=== PATIENT | male | born 1980 | race Caucasian/White ===

== ENCOUNTER 2023-02-28 15:11 | Inpatient (IN) | payer MEDICAID ==
[~2023-02-28] VITALS: Ht 175.3 cm; Wt 104.3 kg
[2023-02-28 15:28] VITALS: BP 109/58; PULSE 102; RESP 22; TEMP 100.4; O2SAT 98
[2023-02-28] MEDS ORDERED: MORPHINE SULFATE 4 MG/ML SYR IVP ONE (15:45)
[2023-02-28] MEDS ORDERED: ONDANSETRON 4 MG TAB PO ONE (15:45)
[2023-02-28] MEDS ORDERED: NACL 0.9% 1,000 ML IV ONE (15:45)
--- NOTE | 2023-02-28 15:50 | NUR ---
42 Y/O MALE BIB SELF, PATIENT PRESENTS TO ED WITH ABD PAIN ON RLQ FOR 2 MO WORSENING TODAY. PT STATES HE HAS BEEN HAVING HARD AND LOOSE STOOLS FOR 2 MO. LAST BM WAS NORMAL TODAY. STATES HE HAS BEEN HAVING ABD PAIN WITH URINATION. DENIES N/V/D; SKIN IS PINK/WARM/DRY; AAOX4 WITH EVEN AND STEADY GAIT; LUNGS CLEAR BL; HR EVEN AND REGULAR; PT DENIES ANY FEVER, CP, SOB, OR COUGH AT THIS TIME; PATIENT STATES PAIN OF 8/10 AT THIS TIME; PATIENT POSITIONED FOR COMFORT; HOB ELEVATED; BEDRAILS UP X2; BED DOWN. ER MD MADE AWARE OF PT STATUS. PMH: APPENDECTOMY ALLERGY: P[place]APPLE
[2023-02-28 15:57] LABS: BASOPHILS # (AUTO) 0.1 K/uL (0.00-0.22); BASOPHILS % (AUTO) 0.7 % (0.0-2.0); EOSINOPHILS % (AUTO) 0.3 % (0.0-4.0); HEMATOCRIT 36.4 % (36-52); HEMOGLOBIN 12.7 g/dL (12.0-18.0); LYMPHOCYTES # (AUTO) 1.5 K/uL (2.0-11.5); LYMPHOCYTES % (AUTO) 12.6 % (20.5-51.1); MEAN CORPUSCULAR HEMOGLOBIN 30 pg (27-31); MEAN CORPUSCULAR HGB CONC 35 g/dL (33-37); MEAN CORPUSCULAR VOLUME 86.9 fL (80-94); MONOCYTES # (AUTO) 0.7 K/uL (0.8-1.0); MONOCYTES % (AUTO) 5.7 % (1.7-9.3); NEUTROPHILS # (AUTO) 9.9 K/uL (1.8-7.7); NEUTROPHILS % (AUTO) 80.7 % (42.2-75.2); PLATELET COUNT (AUTO) 290 K/uL (140-450); RED BLOOD CELL COUNT(AUTO) 4.19 MIL/uL (4.20-6.10); RED CELL DISTRIBUTION WIDTH 12.7 % (11.6-13.7); WHITE BLOOD COUNT (AUTO) 12.3 K/uL (4.8-10.8)
[2023-02-28 16:11] LABS: ALBUMIN 3.3 g/dL (3.4-5.0); CARBON DIOXIDE 22.2 mmol/L (21-32); CREATININE 0.9 mg/dL (0.6-1.3); POTASSIUM 3.2 mmol/L (3.5-5.1); TOTAL BILIRUBIN 1.3 mg/dL (0.0-1.0)
--- NOTE | 2023-02-28 16:31 | NUR ---
PT TAKEN TO CT VIA WHEELCHAIR
[2023-02-28 17:17] LABS: APPEARANCE,URINE CLEAR (CLEAR); BILIRUBIN,URINE NEGATIVE (NEGATIVE); BLOOD, URINE NEGATIVE (NEGATIVE); COLOR,URINE YELLOW (YELLOW); LEUKOCYTE ESTERASE ,URINE NEGATIVE (NEGATIVE); NITRITE, URINE NEGATIVE (NEGATIVE); PH,URINE 8.5 (5.0-9.0); UGLUCOSE NEGATIVE (NEGATIVE)
[2023-02-28] MEDS ORDERED: PIPERACILLIN/TAZOBACTAM 3.375 GM in DEXTROSE 5% 50 ML IV ONE (17:50)
[2023-02-28] MEDS ORDERED: MORPHINE SULFATE 10 MG/ML VIAL IVP ONE (17:50)
[2023-02-28] MEDS ORDERED: cefTRIAXone 1,000 MG VIAL ONE (17:56)
[2023-02-28] MEDS ORDERED: PIPERACILLIN/TAZOBACTAM 3.375 GM VIAL IV ONE (17:56)
--- NOTE | 2023-02-28 17:57 | NUR ---
X-Ray at bedside.
[2023-02-28] MEDS ORDERED: ACETAMINOPHEN 650 MG/20.3 ML UDC PO PRN (18:25)
[2023-02-28] MEDS ORDERED: HYDROcodone/APAP 5/325 MG 1 TAB TAB PO PRN (18:25)
[2023-02-28] MEDS ORDERED: PIPERACILLIN/TAZOBACTAM 4.5 GM in DEXTROSE 5% 100 ML IV ONE (18:40)
[2023-02-28 19:15] LABS: PROTHROMBIN TIME 11.6 secs (10.8-13.4)
--- NOTE | 2023-02-28 19:28 | NUR ---
Pt report given to JACQUE IRWIN. Transfer of care at this time.
--- NOTE | 2023-02-28 19:32 | NUR ---
REPORT TAKEN FROM STACY MARTINO. CONTINUING PLAN OF CARE.
--- NOTE | 2023-02-28 19:35 | NUR ---
PT ON BEDSIDE MONITOR. PT STATES PAIN LEVEL 2/10. VSS. SIDE RAILS UP X1. HOB ELEVATED. BED AT LOWEST LEVEL. CALL LIGHT AT PT BEDSIDE. PENDING BED ASSIGNMENT. WILL TRANSPORT PT TO FLOOR AFTER CHANGE OF SHIFT.
--- NOTE | 2023-02-28 19:41 | NUR ---
MED RECON AND BELONGINGS LIST COMPLETED.
--- NOTE | 2023-02-28 19:52 | NUR ---
REPORT GIVEN TO LISA MARTINO.
--- NOTE | 2023-02-28 19:54 | NUR ---
Patient will be admitted to care of DR GALVEZ . Admited to TELE. Will go to [id number]. Belongings list completed. Report to RACHEL MARTINO.
[2023-02-28 20:00] VITALS: BP 113/61; PULSE 58; PULSE 75; PULSE 78; RESP 18; RESP 19; TEMP 99.7; O2SAT 95; O2SAT 97
--- NOTE | 2023-02-28 20:00 | NUR ---
RECEIVED PT FROM ER. REPORT RECEIVED FROM ER NURSE RADHAMES. PT IS AAOX4. PT CAME IN WITH COMPLAINS OF ABD PAIN. PT UNABLE TO DESCRIBE THE PAIN. FEELS WORSE WHEN MOVING AND BETTER WHEN NOT MOVING. PAIN IS RLQ. PT HAS IV ON LEFT AC 2O GAUGE WITH NS 125 CC/HR. EDUCATED PT WAIVER ANALYST LIGHT SYSTEM AND ROOM ENVIRONMENT. POC DISCUSSED. WILL CONTINUE TO MONITOR THE PT.
[2023-02-28] MEDS ORDERED: PANTOPRAZOLE 40 MG INJ VIAL IVP SCH (21:00)
[2023-02-28] MEDS: MORPHINE SULFATE 2 MG/ML SYR IVP PRN (21:21)
[2023-02-28] MEDS: NACL 0.9% 1,000 ML IV SCH (21:22)
--- NOTE | 2023-02-28 22:30 | NUR ---
PT POTASSIUM IS 3.2. WAS NOT COVERED IN ER. MESSAGED ASSISTANT FINANCIAL ACCOUNTANT DOCTOR CRISTÓBAL. WAITING FOR RESPONSE.
[2023-03-01] VITALS: BP 107/61; PULSE 58; PULSE 78; RESP 18; TEMP 96.1; O2SAT 95
--- NOTE | 2023-03-01 02:15 | NUR ---
OBSERVED PT. PT IS RESTING IN BED. NOT IN ANY DISTRESS. BREATHING EVEN AND UNLABORED. CALL LIGHT WITHIN REACH. SAFETY MEASURES TAKEN. WILL CONTINUE TO MONITOR THE PT.
[2023-03-01] MEDS: NACL 0.9% 1,000 ML IV SCH ×4 (02:25→20:31)
[2023-03-01 04:00] VITALS: BP 117/65; PULSE 53; PULSE 56; RESP 18; TEMP 97.5; O2SAT 97
--- NOTE | 2023-03-01 04:00 | NUR ---
VITAL SIGNS TAKEN AND STABLE. PT DENIES ANY PAIN. NO COMPLAINS. WILL CONTINUE TO MONITOR THE PT.
[2023-03-01 07:03] LABS: BASOPHILS # (AUTO) 0.1 K/uL (0.00-0.22); BASOPHILS % (AUTO) 0.6 % (0.0-2.0); EOSINOPHILS # (AUTO) 0.2 K/uL (0-0.4); EOSINOPHILS % (AUTO) 2.4 % (0.0-4.0); HEMATOCRIT 34.8 % (36-52); HEMOGLOBIN 11.9 g/dL (12.0-18.0); LYMPHOCYTES # (AUTO) 2.1 K/uL (2.0-11.5); LYMPHOCYTES % (AUTO) 22.9 % (20.5-51.1); MEAN CORPUSCULAR HEMOGLOBIN 30 pg (27-31); MEAN CORPUSCULAR HGB CONC 34 g/dL (33-37); MEAN CORPUSCULAR VOLUME 88.8 fL (80-94); MONOCYTES # (AUTO) 0.7 K/uL (0.8-1.0); MONOCYTES % (AUTO) 7.7 % (1.7-9.3); NEUTROPHILS % (AUTO) 66.4 % (42.2-75.2); PLATELET COUNT (AUTO) 259 K/uL (140-450); RED BLOOD CELL COUNT(AUTO) 3.92 MIL/uL (4.20-6.10); RED CELL DISTRIBUTION WIDTH 13.1 % (11.6-13.7)
--- NOTE | 2023-03-01 07:31 | NUR ---
ENDORSED PT TO DAY SHIFT RN FOR CONTINUITY OF CARE. PT IS STABLE.
--- NOTE | 2023-03-01 07:32 | NUR ---
PATIENT RECEIVED FROM PM NURSE FOR CONTINUATION OF CARE. PATIENT SEEN ON BED AWAKE. PATIENT RESTING HEART RATE BELOW 60. PATIENT WAS ASKED IF IT WAS A NORMAL OCCURANCE. PATIENT CONFIRMED HE HAS A SLOW HEART RATE WHEN HE'S NOT MOVING
[2023-03-01 08:00] VITALS: BP 101/62; PULSE 63; PULSE 72; PULSE 78; RESP 18; RESP 20; TEMP 96.9; O2SAT 97
--- NOTE | 2023-03-01 08:48 | NUR ---
PATIENT HAS BEEN SCREENED AND CATEGORIZED HIGH NUTRITION RISK. PATIENT WILL BE SEEN WITHIN 1-2 DAYS OF ADMISSION. 03/01/23-03/02/23 [facility] CONSULT FOR PATIENT FOR VOMITING X3 DAYS RECEIVED ON 03/01/23 AND WILL BE SEEN WITHIN 1-2 DAYS OF CONSULT. ZACH[address]
[2023-03-01] MEDS ORDERED: HYDROcodone/APAP 7.5/325 MG 1 TAB PO PRN (11:10)
[2023-03-01] MEDS ORDERED: ACETAMINOPHEN 325 MG TAB PO PRN (11:10)
[2023-03-01] MEDS ORDERED: ONDANSETRON 4 MG/2 ML VIAL IVP PRN (11:10)
[2023-03-01 12:00] VITALS: BP 130/63; PULSE 59; PULSE 60; RESP 19; TEMP 97; O2SAT 99
[2023-03-01 12:18] LABS: AMYLASE 21 U/L (25-115); CHOL/HDL RATIO 2.5 (1-4.5); FREE T4 (FREE THYROXINE) 1.26 ng/dL (0.76-1.46); HDL CHOLESTEROL 41 mg/dL (40-60); LDL (CALC) 49 mg/dL (60-100); LIPASE 35 U/L (73-393); THYROID STIMULATING HORMONE 1.57 uIU/mL (0.34-3.74); TRIGLYCERIDES 65 mg/dL (30-150)
[2023-03-01] MEDS: PIPERACILLIN/TAZOBACTAM 3.375 GM in DEXTROSE 5% 50 ML IV SCH ×2 (13:00→20:31)
--- NOTE | 2023-03-01 13:25 | NUR ---
PATIENT PICKED UP BY RADIOLOGY TECHS FOR SURGICAL PROCEDURE.
[2023-03-01] MEDS ORDERED: LIDOCAINE 1% 500 MG/50 ML VIAL ONE (13:28)
[2023-03-01] MEDS ORDERED: MIDAZOLAM 5 MG/5 ML VIAL ONE (13:28)
[2023-03-01] MEDS ORDERED: fentaNYL citrate 0.05 MG/ML VIAL ONE (13:28)
--- NOTE | 2023-03-01 14:37 | NUR ---
03/01/23 RD INITIAL ASSESSMENT COMPLETED PLEASE REFER TO NUTRITION ASSESSMENT UNDER CARE ACTIVITY FOR ESTIMATED NUTRITIONAL NEEDS. 1. CONTINUE NPO DIET TOLERATED. ONCE MEDICALLY APPROPRIATE ADVANCE TO CLEAR LIQUID DIET TOLERATED. 2. RD WILL MONITOR WEIGHT, NUTRITION RELATED LABS, PO INTAKE, AND GI ISSUES. 3. RD TO FOLLOW-UP 3-5 DAYS, MODERATE RISK ZACHARY PEOPLES RD
[2023-03-01 16:00] VITALS: BP 120/80; PULSE 59; PULSE 69; RESP 18; TEMP 98; O2SAT 97
[2023-03-01] MEDS: MORPHINE SULFATE 2 MG/ML SYR IVP PRN (16:32)
--- NOTE | 2023-03-01 19:30 | NUR ---
RECEIVED REPORT FROM DAY SHIFT RN FOR CONTINUITY OF CARE. PT IS AWAKE AND ALERT. RESTING IN BED. NOT IN ANY DISTRESS. PT DENIES ANY PAIN AT THIS TIME. PT HAS ACCORDION DRAIN MID ABD. MINIMAL DRAINAGE. PT HAS LEFT AC 20 GAUGE RUNNING NS 50 CC/HR. POC DISCUSSED. CALL LIGHT WITHIN REACH. WILL CONTINUE TO MONITOR THE PT.
[2023-03-01 20:00] VITALS: BP 103/61; PULSE 61; PULSE 64; RESP 20; TEMP 97.8; O2SAT 98
[2023-03-01] MEDS: DOCUSATE SODIUM 100 MG GELCAP PO SCH (20:31)
--- NOTE | 2023-03-01 23:40 | NUR ---
URINE CULTURE AND CULTURE OF ABD CATHETER DRAINAGE SENT TO LAB.
[2023-03-02] VITALS: BP 112/70; PULSE 53; PULSE 54; RESP 16; TEMP 97.1; O2SAT 96
[2023-03-02 01:12] LABS: BARBITURATE, URINE NEGATIVE ng/ml (NEG <=200); BENZODIAZEPINE, URINE NEGATIVE ng/mL (NEG <=200); CANNABINOID, URINE NEGATIVE ng/mL (NEG <=50); COCAINE, URINE NEGATIVE ng/mL (NEG <=300); OPIATE, URINE POSITIVE ng/mL (NEG <=2000); PHENCYCLIDINE SCREEN,URINE NEGATIVE ng/mL (NEG <=25)
--- NOTE | 2023-03-02 02:30 | NUR ---
OBSERVED PT. PT IS SLEEPING COMFORTABLY IN BED. NOT IN ANY DISTRESS. BREATHING EVEN AND UNLABORED. WILL CONTINUE TO MONITOR THE PT.
[2023-03-02 04:00] VITALS: BP 110/68; PULSE 53; PULSE 69; RESP 18; TEMP 97; O2SAT 95
[2023-03-02] MEDS: PIPERACILLIN/TAZOBACTAM 3.375 GM in DEXTROSE 5% 50 ML IV SCH ×3 (04:59→20:13)
[2023-03-02 05:33] LABS: BASOPHILS % (AUTO) 0.4 % (0.0-2.0); EOSINOPHILS # (AUTO) 0.2 K/uL (0-0.4); EOSINOPHILS % (AUTO) 2.3 % (0.0-4.0); HEMATOCRIT 34.4 % (36-52); LYMPHOCYTES # (AUTO) 1.6 K/uL (2.0-11.5); LYMPHOCYTES % (AUTO) 18.8 % (20.5-51.1); MEAN CORPUSCULAR HEMOGLOBIN 31 pg (27-31); MEAN CORPUSCULAR HGB CONC 35 g/dL (33-37); MEAN CORPUSCULAR VOLUME 87.7 fL (80-94); MONOCYTES # (AUTO) 0.5 K/uL (0.8-1.0); NEUTROPHILS # (AUTO) 6.2 K/uL (1.8-7.7); NEUTROPHILS % (AUTO) 72.5 % (42.2-75.2); PLATELET COUNT (AUTO) 251 K/uL (140-450); RED BLOOD CELL COUNT(AUTO) 3.92 MIL/uL (4.20-6.10); RED CELL DISTRIBUTION WIDTH 12.8 % (11.6-13.7); WHITE BLOOD COUNT (AUTO) 8.5 K/uL (4.8-10.8)
[2023-03-02 06:17] LABS: MAGNESIUM 1.8 mg/dL (1.8-2.4); PHOSPHORUS 3.7 mg/dL (2.5-4.9)
[2023-03-02 06:32] LABS: ANION GAP 10.9 (8-16); CARBON DIOXIDE 24.8 mmol/L (21-32); POTASSIUM 3.7 mmol/L (3.5-5.1)
[2023-03-02 06:53] LABS: CREATININE 0.7 mg/dL (0.6-1.3)
--- NOTE | 2023-03-02 07:15 | NUR ---
RECEIVED REPORT FROM BILLBOARD ERECTOR HELPER FOR CONTINUITY OF CARE. ALERT AND ORIENTED X 4. RESP. EVEN AND UNLABORED. ON ROOM AIR. IVF INFUSING WELL. NO C/O PAIN OR DISCOMFORT. CALL LIGHT KEPT WITHIN REACH. WILL CONTINUE TO MONITOR.
--- NOTE | 2023-03-02 07:18 | NUR ---
ENDORSED PT TO DAY SHIFT RN FOR CONTINUITY OF CARE. PT IS STABLE.
[2023-03-02 08:00] VITALS: BP 116/72; PULSE 57; PULSE 58; PULSE 62; RESP 18; RESP 20; TEMP 98; O2SAT 98
[2023-03-02] MEDS: DOCUSATE SODIUM 100 MG GELCAP PO SCH ×2 (08:39→20:13)
--- NOTE | 2023-03-02 08:39 | NUR ---
COLACE PO WAS GIVEN. TOLERATED WELL.
[2023-03-02 12:00] VITALS: BP 115/69; PULSE 59; PULSE 62; PULSE 84; RESP 20; TEMP 98; O2SAT 98
--- NOTE | 2023-03-02 12:10 | NUR ---
ACCORDION DRAIN OUTPUT COLLECTED 30 ML. SPECIMEN SEND TO LAB FOR CULTURE. PENDING RESULT.
[2023-03-02] MEDS: PANTOPRAZOLE 40 MG INJ VIAL IVP SCH (12:20)
[2023-03-02 16:00] VITALS: BP 107/70; PULSE 57; PULSE 60; RESP 20; TEMP 98.5; O2SAT 98
[2023-03-02] MEDS: NACL 0.9% 1,000 ML IV SCH (18:44)
--- NOTE | 2023-03-02 18:50 | NUR ---
ACCORDION DRAIN OUTPUT 10 ML.
--- NOTE | 2023-03-02 19:10 | NUR ---
REPORT GIVEN TO PAD HAND FOR CONTINUITY OF CARE. REMAINS STABLE.
--- NOTE | 2023-03-02 19:15 | NUR ---
RECEIVED REPORT FROM DAY SHIFT NURSE FOR CONTINUITY OF CARE. PT IS AWAKE AND ALERT. RESTING IN BED. NOT IN ANY DISTRESS. PT DENIES ANY PAIN AT THIS TIME. PT HAS ACCORDION DRAIN MID ABD. PT HAS LEFT AC 20 GAUGE RUNNING NS 50 CC/HR. POC DISCUSSED. CALL LIGHT WITHIN REACH. WILL CONTINUE TO MONITOR THE PT.
[2023-03-02 20:00] VITALS: BP 103/56; PULSE 64; RESP 18; TEMP 97; O2SAT 97
--- NOTE | 2023-03-03 00:05 | NUR ---
OBSERVED PT. PT IS SLEEPING COMFORTABLY IN BED. NOT IN ANY DISTRESS. BREATHING EVEN AND UNLABORED. WILL CONTINUE TO MONITOR THE PT.
[2023-03-03 04:00] VITALS: BP 105/71; PULSE 56; RESP 16; TEMP 97.1; O2SAT 96
[2023-03-03] MEDS: PIPERACILLIN/TAZOBACTAM 3.375 GM in DEXTROSE 5% 50 ML IV SCH ×3 (04:48→21:05)
--- NOTE | 2023-03-03 04:50 | NUR ---
SCHEDULE ABX GIVEN. NO ADVERSE REACTION NOTED. WILL CONTINUE TO MONITOR THE PT.
[2023-03-03 05:11] LABS: BASOPHILS % (AUTO) 0.4 % (0.0-2.0); EOSINOPHILS # (AUTO) 0.2 K/uL (0-0.4); EOSINOPHILS % (AUTO) 2.6 % (0.0-4.0); HEMATOCRIT 33.2 % (36-52); HEMOGLOBIN 11.6 g/dL (12.0-18.0); LYMPHOCYTES # (AUTO) 1.9 K/uL (2.0-11.5); MEAN CORPUSCULAR HEMOGLOBIN 31 pg (27-31); MEAN CORPUSCULAR HGB CONC 35 g/dL (33-37); MEAN CORPUSCULAR VOLUME 87.8 fL (80-94); MONOCYTES # (AUTO) 0.6 K/uL (0.8-1.0); MONOCYTES % (AUTO) 7.3 % (1.7-9.3); NEUTROPHILS # (AUTO) 5.9 K/uL (1.8-7.7); NEUTROPHILS % (AUTO) 67.7 % (42.2-75.2); PLATELET COUNT (AUTO) 268 K/uL (140-450); RED BLOOD CELL COUNT(AUTO) 3.79 MIL/uL (4.20-6.10); RED CELL DISTRIBUTION WIDTH 12.8 % (11.6-13.7); WHITE BLOOD COUNT (AUTO) 8.7 K/uL (4.8-10.8)
[2023-03-03 05:49] LABS: MAGNESIUM 1.7 mg/dL (1.8-2.4); PHOSPHORUS 3.6 mg/dL (2.5-4.9)
[2023-03-03 05:50] LABS: ANION GAP 9.6 (8-16); CARBON DIOXIDE 26.8 mmol/L (21-32); CREATININE 0.7 mg/dL (0.6-1.3); POTASSIUM 3.4 mmol/L (3.5-5.1)
--- NOTE | 2023-03-03 07:05 | NUR ---
RECEIVED REPORT FROM NIGHT NURSE LISA FOR CONTINUITY OF CARE. ALERT AND ORIENTED X 4. RESP. EVEN AND UNLABORED. ON ROOM AIR. IVF INFUSING WELL. ACCORDION DRAIN INTACT. NO C/O PAIN OR DISCOMFORT. CALL LIGHT KEPT WITHIN REACH. WILL CONTINUE TO MONITOR.
--- NOTE | 2023-03-03 07:09 | NUR ---
ENDORSED PT TO DAY SHIFT RN FOR CONTINUITY OF CARE. PT IS STABLE.
[2023-03-03 08:00] VITALS: BP 94/55; PULSE 54; RESP 20; TEMP 97.5; O2SAT 97; O2SAT 98
--- NOTE | 2023-03-03 08:49 | NUR ---
INFORMED DR. DUNCAN, REGARDING POTASSIUM 3.4, MAGNESIUM 1.7. AWAITING FOR RESPONSE.
[2023-03-03] MEDS ORDERED: MAG SULF 2000 MG/WATER PREMIX 50 ML IV PRN (09:00)
[2023-03-03] MEDS: DOCUSATE SODIUM 100 MG GELCAP PO SCH ×2 (09:44→21:04)
--- NOTE | 2023-03-03 09:44 | NUR ---
DOCUSATE PO GIVEN. TOLERATED WELL.
[2023-03-03] MEDS: PANTOPRAZOLE 40 MG INJ VIAL IVP SCH (10:43)
--- NOTE | 2023-03-03 10:43 | NUR ---
PROTONIX IVP WAS GIVEN BY CARY MARTINO. TOLERATED WELL.
--- NOTE | 2023-03-03 14:43 | NUR ---
ZOSYN IV WAS GIVEN BY CARY MARTINO. TOLERATED WELL.
--- NOTE | 2023-03-03 15:25 | NUR ---
MADE FOLLOW UP WITH DR. DUNCAN, REGARDING POTASSIUM 3.4, MAGNESIUM 1.7. AWAITING FOR RESPONSE.
[2023-03-03] MEDS ORDERED: MORPHINE SULFATE 2 MG/ML SYR IVP PRN (15:40)
[2023-03-03] MEDS ORDERED: ACETAMINOPHEN 325 MG TAB PO PRN (15:40)
[2023-03-03] MEDS ORDERED: POTASSIUM CHLORIDE 10 MEQ TABER PO PRN (15:40)
[2023-03-03] MEDS ORDERED: DOCUSATE SODIUM 100 MG GELCAP PO PRN (15:40)
[2023-03-03] MEDS ORDERED: ONDANSETRON 4 MG/2 ML VIAL IVP PRN (15:40)
[2023-03-03] MEDS ORDERED: LORazepam 2 MG/ML VIAL IVP PRN (15:40)
[2023-03-03] MEDS: NACL 0.9% 1,000 ML IV SCH (16:47)
--- NOTE | 2023-03-03 16:50 | NUR ---
PRN K DUR WAS GIVEN FOR POTASSIUM 3.4. TOLERATED WELL.
--- NOTE | 2023-03-03 17:22 | NUR ---
PRN MAG RIDER GIVEN BY CARY MARTINO. TOLERATED WELL.
--- NOTE | 2023-03-03 18:40 | NUR ---
ACCORDION DRAIN OUTPUT 30 ML.
--- NOTE | 2023-03-03 19:15 | NUR ---
BEDSIDE REPORT GIVEN TO UNIVERSITY DEMONSTRATOR FOR CONTINUITY OF CARE. REMAINS STABLE.
--- NOTE | 2023-03-03 19:16 | NUR ---
RECEIVED PT FROM MORNING SHIFT NURSE. PT IS AOX4, AMBULATORY, ABLE TO VERBALIZE NEEDS AND ABLE TO FOLLOW COMMANDS. PT IS ON ROOM AIR AND ON CLEAR LIQUID DIET. PT HAS IV ON LEFT AC GAUGE 20 RUNNING WITH NS AT 50ML/HR. PT SKIN IS INTACT. PT HAS ACCORDION DRAIN ON MID LATERAL BELOW UMBILICUS. NO COMPLAIN OF PAIN AT THIS TIME. NO S/S OF RESPIRATORY DISTRESS NOTED. ALL SAFETY MEASURES IMPLEMENTED. BED IN LOW POSITION, BED WHEELS ON LOCK AND CALL LIGHT WITHIN REACH.
--- NOTE | 2023-03-03 19:20 | NUR ---
WOUND CULTURE RESULT CAME IN, REPORTED TO DR. CHU. AWAITING FOR RESPONSE.
[2023-03-03 20:00] VITALS: BP 117/68; PULSE 62; RESP 18; TEMP 98.5; O2SAT 96
--- NOTE | 2023-03-03 21:05 | NUR ---
SCHEDULED AND PRESCRIBED MEDICATION WAS GIVEN TO PT PER MD ORDER. ALL SAFETY MEASURES IMPLEMENTED. BED IN LOW POSITION, BED WHEELS ON LOCK AND CALL LIGHT WITHIN REACH.
--- NOTE | 2023-03-03 22:00 | NUR ---
IV WAS INFILTRATED. CHANGED IV IN RIGHT HAND GAUGE 22. IV IS NOW PATENT AND INTACT. ALL SAFETY MEASURES IMPLEMENTED. BED IN LOW POSITION, BED WHEELS ON LOCK AND CALL LIGHT WITHIN REACH.
--- NOTE | 2023-03-04 | NUR ---
PT IS ON SLEEP. CHEST RISE AND FALL SYMMETRICALLY NOTED. RESPIRATION IS EVEN AND UNLABORED. ALL SAFETY MEASURE IMPLEMENTED. BED IN LOW POSITION, BED WHEELS ON LOCK AND CALL LIGHT WITHIN REACH.
--- NOTE | 2023-03-04 02:00 | NUR ---
CHECKED THE PT, STILL ON SLEEP. CHEST RISE AND FALL SYMMETRICALLY NOTED. RESPIRATION IS EVEN AND UNLABORED. ALL SAFETY MEASURES IMPLEMENTED. BED WHEELS ON LOCK , BED IN LOW POSITION AND CALL LIGHT WITHIN REACH.
[2023-03-04 04:00] VITALS: BP 104/66; PULSE 60; RESP 18; TEMP 97.6; O2SAT 98
[2023-03-04] MEDS: PIPERACILLIN/TAZOBACTAM 3.375 GM in DEXTROSE 5% 50 ML IV SCH ×3 (05:13→21:51)
--- NOTE | 2023-03-04 05:13 | NUR ---
SCHEDULED AND PRESCRIBED MEDICATION WAS GIVEN TO PT PER MD ORDER. ALL SAFETY MEASURES IMPLEMENTED. BED WHEELS ON LOCK , BED IN LOW POSITION AND CALL LIGHT WITHIN REACH.
[2023-03-04 05:35] LABS: BASOPHILS # (AUTO) 0.1 K/uL (0.00-0.22); BASOPHILS % (AUTO) 0.6 % (0.0-2.0); EOSINOPHILS # (AUTO) 0.2 K/uL (0-0.4); EOSINOPHILS % (AUTO) 2.5 % (0.0-4.0); HEMOGLOBIN 11.8 g/dL (12.0-18.0); LYMPHOCYTES # (AUTO) 1.9 K/uL (2.0-11.5); LYMPHOCYTES % (AUTO) 19.1 % (20.5-51.1); MEAN CORPUSCULAR HEMOGLOBIN 30 pg (27-31); MEAN CORPUSCULAR HGB CONC 35 g/dL (33-37); MONOCYTES # (AUTO) 0.7 K/uL (0.8-1.0); MONOCYTES % (AUTO) 6.7 % (1.7-9.3); NEUTROPHILS % (AUTO) 71.1 % (42.2-75.2); PLATELET COUNT (AUTO) 276 K/uL (140-450); RED CELL DISTRIBUTION WIDTH 12.8 % (11.6-13.7); WHITE BLOOD COUNT (AUTO) 9.8 K/uL (4.8-10.8)
[2023-03-04 05:37] LABS: ANION GAP 10.4 (8-16); CARBON DIOXIDE 26.2 mmol/L (21-32); CREATININE 0.7 mg/dL (0.6-1.3); POTASSIUM 3.6 mmol/L (3.5-5.1)
[2023-03-04 05:44] LABS: PHOSPHORUS 3.9 mg/dL (2.5-4.9)
--- NOTE | 2023-03-04 07:20 | NUR ---
RECEIVED REPORT FROM NIGHT NURSE MEE FOR CONTINUITY OF CARE. ALERT AND ORIENTED X 4. RESP. EVEN AND UNLABORED. ON ROOM AIR. IVF INFUSING WELL. ACCORDION DRAIN INTACT. CALL LIGHT KEPT WITHIN REACH. WILL CONTINUE TO MONITOR.
--- NOTE | 2023-03-04 07:27 | NUR ---
PT IS STABLE. ENDORSED PT TO MORNING SHIFT NURSE FOR CONTINUITY OF CARE.
[2023-03-04 08:00] VITALS: BP 107/68; PULSE 53; PULSE 61; RESP 18; TEMP 97.8; O2SAT 97; O2SAT 98
--- NOTE | 2023-03-04 08:00 | NUR ---
Patient's Plan of Care was discussed and reviewed with FRUIT SHIPPER: MARIYA DAILEY
[2023-03-04] MEDS: DOCUSATE SODIUM 100 MG GELCAP PO SCH ×2 (09:27→21:51)
[2023-03-04] MEDS: PANTOPRAZOLE 40 MG INJ VIAL IVP SCH (09:27)
--- NOTE | 2023-03-04 09:27 | NUR ---
SCHEDULED MEDICATIONS GIVEN BY LESIA MARTINO. TOLERATED WELL.
--- NOTE | 2023-03-04 13:51 | NUR ---
ZOSYN IV WAS GIVEN BY LESIA MARTINO. TOLERATED WELL.
--- NOTE | 2023-03-04 16:40 | NUR ---
DC PLANN[age] YRS OLD MALE PATIENT WAS ADMITTED FROM HOME WITH A DX OF BOWEL PERFORATION. PATIENT HAS NO MEDICAL HX. CT ABD SHOWED ACUTE SIGMOID DIVERTICULITIS WITH LARGE ABSCESS. DR WANG SEEN PATIENT EXPLAINED THE FINDINGS BUT PT PREFERED NONOPERATIVE MANAGEMENT. IR PLACED DRAINAGE PERICOLONIC COLLECTION/ABSCESS. CONTINUED IV ABX ZOSYN, IVF, AND PAIN MEDS. DC PLAN TO GO HOME WHEN STABLE CM TO FOLLOW Addendum: 03/05/23 at 0974 by Norma Malik RN DC PLANNING: IR PLACED PERCUTANEOUS DRAINAGE CATHETER IN THE CONTAINED SIGMOID COLONIC WALL RUPTURE. CONTINUED IV ABX ZOSYN. DC PLAN TO GO HOME WHEN STABLE CM TO FOLLOW Addendum: 03/05/23 at 1430 by TERRELL KIRKPATRICK CM PATIENT NEEDED A PCP APPOINTMENT. CALLED [facility] LOCATED AT [address] [place] [address] [place] [address]. WAS ABLE TO SETUP A FOLLOW UP APPOINTMENT FOR 03/12/2023 AT 1300. PATIENT NEED TO FOLLOW UP THIS SURGEON. CALLED DR [facility] LOCATED AT [address] [facility] [id number]. WAS ABLE TO SCHEDULE A FOLLOW UP APPOINTMENT FOR 03/14/2023 AT 0930. CALLED PATIENT AND INFORMED HIM OF THE ABOVE INFORMATION WELL GAVE APPOINTMENT SLIP WITH THE ABOVE INFORMATION ON IT.
[2023-03-04] MEDS: NACL 0.9% 1,000 ML IV SCH (17:36)
--- NOTE | 2023-03-04 18:05 | NUR ---
IV INFILTRATED. REINSERTED IV TO RFA 22G WITH GOOD BLOOD RETURN. TOLERATED WELL.
--- NOTE | 2023-03-04 19:20 | NUR ---
BEDSIDE REPORT GIVEN TO PRODUCT DEVELOPMENT TECHNICIAN FOR CONTINUITY OF CARE. REMAINS STABLE.
--- NOTE | 2023-03-04 19:30 | NUR ---
RECEIVED REPORT FROM DAY SHIFT RN FOR CONTINUITY OF CARE. PT IS AWAKE, ALERT AND ORIENTED X 4. RESTING IN BED. NOT IN ANY DISTRESS. PT DENIES ANY PAIN AT THIS TIME. PT HAS ACCORDION DRAIN MID ABD. MINIMAL DRAINAGE. PT HAS R FA 22,GAUGE RUNNING NS 50 CC/HR. POC DISCUSSED. ALL PRECAUTIONS IN PLACE.CALL LIGHT WITHIN REACH. WILL CONTINUE TO MONITOR THE PT.
[2023-03-04 20:00] VITALS: BP 99/66; PULSE 61; PULSE 69; RESP 18; TEMP 97.7; O2SAT 97; O2SAT 98
--- NOTE | 2023-03-04 21:00 | NUR ---
SCHEDULED MEDICATIONS GIVEN. PT TOLERATED WELL. PT TRANSFERRED TO ROOM 116. ON CONTACT PRECAUTIONS FOR MDRO OF WOUND ABSCESS.
--- NOTE | 2023-03-05 | NUR ---
PT ASLEEP IN BED. NO S/SX OF DISTRESS NOTED. BREATHING EVEN AND UNLABORED.ALL PRECAUTIONS IN PLACE.CALL LIGHT WITHIN REACH. WILL CONTINUE TO MONITOR.
[2023-03-05 04:00] VITALS: BP 111/63; PULSE 55; RESP 18; TEMP 97; O2SAT 95
[2023-03-05] MEDS: PIPERACILLIN/TAZOBACTAM 3.375 GM in DEXTROSE 5% 50 ML IV SCH (04:28)
--- NOTE | 2023-03-05 05:00 | NUR ---
SCHEDULED MEDICATIONS GIVEN. PT TOLERATED WELL. WILL CONTINUE TO MONITOR.
[2023-03-05 06:31] LABS: BASOPHILS % (AUTO) 0.5 % (0.0-2.0); EOSINOPHILS # (AUTO) 0.3 K/uL (0-0.4); EOSINOPHILS % (AUTO) 3.1 % (0.0-4.0); HEMATOCRIT 34.6 % (36-52); HEMOGLOBIN 11.9 g/dL (12.0-18.0); LYMPHOCYTES # (AUTO) 1.9 K/uL (2.0-11.5); LYMPHOCYTES % (AUTO) 19.6 % (20.5-51.1); MEAN CORPUSCULAR HEMOGLOBIN 30 pg (27-31); MEAN CORPUSCULAR HGB CONC 34 g/dL (33-37); MEAN CORPUSCULAR VOLUME 88.1 fL (80-94); MONOCYTES # (AUTO) 0.6 K/uL (0.8-1.0); MONOCYTES % (AUTO) 5.8 % (1.7-9.3); NEUTROPHILS # (AUTO) 6.8 K/uL (1.8-7.7); PLATELET COUNT (AUTO) 286 K/uL (140-450); RED BLOOD CELL COUNT(AUTO) 3.93 MIL/uL (4.20-6.10); RED CELL DISTRIBUTION WIDTH 12.9 % (11.6-13.7); WHITE BLOOD COUNT (AUTO) 9.6 K/uL (4.8-10.8)
--- NOTE | 2023-03-05 06:33 | NUR ---
PT IS STABLE. NO ACUTE EVENTS THROUGHOUT THE NIGHT. ALL NEEDS MET. NO S/SX OF DISTRESS AT THE MOMENT. ALL PRECAUTIONS IN PLACE. CALL LIGHT WITHIN REACH. WILL ENDORSE TO MORNING SHIFT NURSE.
[2023-03-05 06:42] LABS: ANION GAP 11.1 (8-16); CARBON DIOXIDE 27.9 mmol/L (21-32); CREATININE 0.8 mg/dL (0.6-1.3)
[2023-03-05 06:43] LABS: PHOSPHORUS 3.7 mg/dL (2.5-4.9)
--- NOTE | 2023-03-05 07:03 | NUR ---
receive the patient from the slot shift manager morales Goddard in rm 116 with admitting diagnosis of bowel perforation . afebrile . no complain of pain at this time . will continue to monitor
[2023-03-05 07:49] VITALS: PULSE 68; RESP 20; O2SAT 99
[2023-03-05] MEDS: DOCUSATE SODIUM 100 MG GELCAP PO SCH (09:00)
[2023-03-05] MEDS: PANTOPRAZOLE 40 MG INJ VIAL IVP SCH (09:00)
[2023-03-05] MEDS ORDERED: LACT500C2 PO (10:36)
[2023-03-05] MEDS ORDERED: OMEP40EC23 PO (10:36)
[2023-03-05] MEDS ORDERED: LEVO750T75 PO (10:36)
[2023-03-05] MEDS ORDERED: DOCU-299 PO (10:36)
[2023-03-05 11:28] VITALS: BP 132/86; PULSE 69; RESP 20; TEMP 97.1
--- NOTE | 2023-03-05 11:30 | NUR ---
made patient teaching for home regarding accordion drainage in emptying , always on negative pressure , change of dressing . gave leave of absence for the patient .
--- NOTE | 2023-03-05 12:30 | NUR ---
discharge the patient home . gave some dressings to be use for home today . also shown how to wrap the operative site for the patinet to antoinette shower for home . afebrile . no complain of pain at this time , stable . [facility] with
--- NOTE | 2023-03-05 13:40 | NUR ---
03/05/23 RD FOLLOW UP COMPLETED PLEASE REFER TO NUTRITION ASSESSMENT UNDER CARE ACTIVITY FOR ESTIMATED NUTRITIONAL NEEDS. 1. CONTINUE SOFT DIET TOLERATED AND ONCE MEDICALLY APPROPRIATE ADVANCE TO REGULAR DIET AND REGULAR TEXTURE. 2. RD ENCOURAGES PATIENT TO CONTINUE WITH SOFT BLAND FOODS FOR ONE MORE WEEK AFTER DISCHARGE AND TO EAT SMALL FREQUENT MEALS. 3. RD TO FOLLOW-UP 7 DAYS, LOW RISK ZACHARY PEOPLES, RD
== END 2023-03-05 14:25 | disposition home or self-care (01) | DRG 720 ==
LOC: MED 15:11 → MTU 18:32
PROVIDERS: ADMIT Student in an Organized Health Care Education/Training Program; ATTEND Student in an Organized Health Care Education/Training Program
PROC: 0D9N30Z Drainage of Sigmoid Colon with Drainage Device, Percutaneous Approach (ICD-10-PCS; principal; 2023-03-01)
DX: A41.9 Sepsis, unspecified organism (principal); K65.1 Peritoneal abscess; E44.1 Mild protein-calorie malnutrition; E87.1 Hypo-osmolality and hyponatremia; K57.20 Diverticulitis of large intestine with perforation and abscess without bleeding; Z68.34 Body mass index [BMI] 34.0-34.9, adult; E87.6 Hypokalemia; N30.90 Cystitis, unspecified without hematuria; N28.1 Cyst of kidney, acquired; Z90.49 Acquired absence of other specified parts of digestive tract; Z88.8 Allergy status to other drugs, medicaments and biological substances
CPT/HCPCS: 36415; 71045; 75989; 80048; 80053; 80305; 81003; 82140; 82150; 83036; 83605; 83690; 83735; 83880; 84100; 84439; 84443; 84484; 85025; 85610; 85730; 87040; 87070; 87075; 87081; 87086; 87205; 93005; 96361; 96365; 96367; 99291; C9113; J0696; J2001; J2250; J2270; J2543; J3010; J3475; J7060; Q0162; Q9967